=== PATIENT | female | born 1985 | race Caucasian/White ===

== ENCOUNTER 2018-07-17 07:53 | Inpatient (IN) | payer OTHER ==
[2018-07-17 09:25] LABS: ABS Basophils 0.1 10^3/ul (0-0.2); ABS Eosinophils 0.1 10^3/ul (0-0.6); ABS Lymphocytes 1.7 10^3/ul (1.0-4.8); ABS Monocytes 0.6 10^3/ul (0-0.8); ABS Neutrophils 5.5 10^3/ul (1.5-7.7); ABS Nucleated RBC 0 10^3/ul; Eosinophil % 1.8 % (0-6); Hematocrit 37 % (35-47); Hemoglobin 12.5 g/dl (12.0-16.0); Lymphocyte % 20.9 % (25-47); Mean Corpuscular HGB Conc 34 g/dl (31-36); Mean Corpuscular Hemoglobin 30 pg (27-31); Mean Corpuscular Volume 90 fL (80-97); Mean Platelet Volume 8.7 um3 (7.4-10.4); Nucleated Red Blood Cells % 0.1; Platelet Count 307 10^3/ul (150-450); Red Blood Count 4.15 10^6/ul (4.00-5.40); Red Cell Distribution Width 14 % (10.5-15)
[2018-07-17] MEDS ORDERED: Oxytocin in LR* 20 UNITS/1,000 ML BAG IVPB ONE (09:47)
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
[2018-07-17] MEDS ORDERED: Oxytocin in LR* 20 UNITS/1,000 ML BAG IVPB SCH (10:00)
[2018-07-17] MEDS ORDERED: OBEPIDURAL* 250 ML EPIDURAL ONE (14:55)
[2018-07-17] MEDS ORDERED: Sodium Citrate/Citric Acid* 15 ML UDC PO PRN (16:35)
[2018-07-17] MEDS ORDERED: Famotidine TAB* 20 MG PO PRN (16:35)
[2018-07-17] MEDS ORDERED: Phenylephrine IV* 40 MCG/ML 10 ML SYRINGE IV PUSH PRN (16:35)
[2018-07-17] MEDS ORDERED: OBEPIDURAL* 250 ML EPIDURAL SCH (17:00)
[2018-07-17] MEDS ORDERED: ceFOXitin 2 GM IVPREMIX* 2 GM/50 ML BAG ONE (20:31)
[2018-07-17] MEDS ORDERED: Lidocaine 2% EPI 1:200000 MPF*10-20 ML VIAL ONE (20:56)
[2018-07-17] MEDS ORDERED: Chloroprocaine 3%* 20 ML VIAL ONE (20:56)
[2018-07-17] MEDS ORDERED: Famotidine IV* 10 MG/ML 2 ML (20 mg) ONE (21:00)
[2018-07-17] MEDS ORDERED: Ondansetron INJ* 2 MG/ML VIAL ONE (21:00)
[2018-07-17] MEDS ORDERED: fentaNYL* 50 MCG/ML 2 ML VIAL (100 MCG VIAL) IV PRN (21:33)
[2018-07-17] MEDS ORDERED: Naloxone* 0.4 MG/ML 1 ML VIAL IV PRN ×2 (21:33→21:44)
[2018-07-17] MEDS ORDERED: OXYTOCIN* 10 UNITS/ML 1 ML VIAL ONE (21:36)
[2018-07-17] MEDS ORDERED: Morphine PF AMP (0.5MG/ML)* 5 MG/10 ML AMP ONE (21:37)
[2018-07-17] MEDS ORDERED: Ondansetron INJ* 2 MG/ML VIAL IV PRN (21:44)
[2018-07-17] MEDS ORDERED: HYDROcodone/ACETAMIN 5-325 MG* 1 TAB PO PRN (21:44)
[2018-07-17] MEDS ORDERED: DiMENhydriNATE IV* 50 MG/ML VIAL IV PUSH PRN (21:44)
[2018-07-17] MEDS ORDERED: diPHENhydraMINE IV* 50 MG/ML 1 ml VIAL (BENADRYL) IV PRN (21:44)
[2018-07-17] MEDS ORDERED: Ketorolac INJ* 30 MG/ML 1 ML VIAL IV PRN (21:44)
[2018-07-17] MEDS ORDERED: Acetaminophen TAB* 325 MG PO PRN (21:44)
[2018-07-17] MEDS ORDERED: PROCHLORPERAZINE INJ 5 MG/ML 2 ML VIAL IV PRN (21:44)
[2018-07-17] MEDS ORDERED: Nalbuphine* 10 MG/ML 1 ML VIAL IV PRN (21:44)
[2018-07-17] MEDS ORDERED: Scopolamine 1.5 mg* PATCH TRANSDERM PRN (21:44)
[2018-07-17] MEDS ORDERED: Ketorolac INJ* 30 MG/ML 1 ML VIAL ONE (21:59)
[2018-07-17] MEDS ORDERED: Glycerin ADULT SUPP PR PRN (22:10)
[2018-07-17] MEDS ORDERED: Zolpidem TAB* 5 MG PO PRN (22:10)
[2018-07-17] MEDS ORDERED: Dibucaine 1% 28.35 GM TUBE PR PRN (22:10)
[2018-07-17] MEDS ORDERED: Witch Hazel PAD* JAR TOPICAL PRN (22:10)
[2018-07-18] MEDS: HYDROcodone/ACETAMIN 5-325 MG* 1 TAB PO PRN ×2 (06:31→12:05)
[2018-07-18] MEDS: Enoxaparin(*) 60 MG/0.6 ML SYR SUBCUT SCH ×2 (07:08→18:11)
[2018-07-18 07:50] LABS: ABS Basophils 0.1 10^3/ul (0-0.2); ABS Eosinophils 0.1 10^3/ul (0-0.6); ABS Lymphocytes 1.9 10^3/ul (1.0-4.8); ABS Monocytes 0.7 10^3/ul (0-0.8); ABS Neutrophils 9.2 10^3/ul (1.5-7.7); ABS Nucleated RBC 0 10^3/ul; Eosinophil % 0.5 % (0-6); Hematocrit 32 % (35-47); Hemoglobin 10.8 g/dl (12.0-16.0); Lymphocyte % 15.5 % (25-47); Mean Corpuscular HGB Conc 34 g/dl (31-36); Mean Corpuscular Hemoglobin 31 pg (27-31); Mean Corpuscular Volume 89 fL (80-97); Mean Platelet Volume 8.3 um3 (7.4-10.4); Nucleated Red Blood Cells % 0; Platelet Count 267 10^3/ul (150-450); Red Blood Count 3.55 10^6/ul (4.00-5.40); Red Cell Distribution Width 13 % (10.5-15); White Blood Count 11.9 10^3/ul (3.5-10.8)
[2018-07-18] MEDS: Docusate CAP* 100 MG PO SCH ×3 (08:56→20:15)
[2018-07-18] MEDS: Simethicone TAB* 80 MG TAB.CHEW PO SCH ×4 (08:56→20:15)
[2018-07-18] MEDS ORDERED: Ferrous Gluconate TAB* 324 MG TAB PO SCH (09:00)
[2018-07-18] MEDS ORDERED: Acetaminophen TAB* 325 MG PO PRN (13:44)
--- NOTE | 2018-07-18 14:24 | OP ---
DATE OF OPERATION: 07/17/18 - ROOM #105 DATE OF : 87 SURGEON: Raymundo Lucas MD PRODUCT SAFETY OFFICER: Kiesha Cervantse CM ANESTHESIA: Epidural. PRE-OP DIAGNOSES: with a BMI of 53, morbid obesity, gestational hypertension, and hypothyroidism with a category 2 tracing, in labor. The patient desires permanent sterilization. POST-OP DIAGNOSES: with a BMI of 53, morbid obesity, gestational hypertension, and hypothyroidism with a category 2 tracing, in labor. OPERATIVE PROCEDURE: Primary low-transverse section and bilateral fimbriectomy. ESTIMATED BLOOD LOSS: 600 cc. URINE OUTPUT: Clear. IV FLUIDS: She received 1800 cc of IV crystalloid fluid. FINDINGS: Delivery of a viable male infant with body cord x2 with Apgars of 9 and 9, weighing 7 pounds and 2 ounces. The placenta was grossly intact with 3- vessel cord noted. The uterus, adnexa, bowel, and bladder were within normal limits. SPECIMEN SENT TO PATHOLOGY: Cord blood and bilateral tubal fimbria. DESCRIPTION OF PROCEDURE: The patient was taken to the operating room where she was identified. She was placed on operating table, where an epidural anesthetic was obtained without difficulty. She was then placed in the supine position with a leftward tilt, prepped and draped in normal sterile fashion. A Pfannenstiel skin incision was made with a knife and carried through to the underlying layer of fascia. The fascia was then nicked in the midline and extended laterally with curved Ramos scissors. The fascia was then grasped superiorly and inferiorly with Kelvin clamps and dissected off sharply from the rectus muscle. The rectus muscles were in the midline bluntly. The peritoneum was identified, grasped with pickups, and entered sharply with Metzenbaum scissors, and extended superiorly and inferiorly, bluntly. At this point, I proceeded to introduce a retractor into the patient's abdomen. A bladder flap was created. the bladder flap, a bladder blade was then introduced. A low transverse incision was made with a knife and extended laterally with bandage scissors. The infant's head was then grasped and delivered atraumatically. The rest of the infant's body was then delivered. The cord was clamped and cut and the infant was handed off to awaiting jewel hole cornerer. Cord bloods were obtained. The placenta was removed manually. The uterus was then cleaned with moist laparotomy sponges. All the sponges were removed from the patient's abdomen. The uterus was left in situ and the uterine incision was closed with 0 Polysorb suture in a running locked fashion with a second imbricating layer of 0 Polysorb suture with good hemostasis noted. At this point, the retractor was removed from the patient's abdomen. The uterus was then exteriorized. A bilateral fimbriectomy was performed in the usual fashion as a means of tubal sterilization. The uterus was then returned to the patient's abdomen. The gutters were then cleared of clot and debris usually moist laparotomy sponges. The peritoneum was then closed using 3 -0 Polysorb suture in a running fashion. The fascia was closed using 0 Polysorb suture in a running fashion. Mini's fascia was closed using 3-0 Polysorb suture with interrupted stitches and the skin was closed with a 4-0 Monocryl and a subcuticular stitch. The patient tolerated the procedure well. Sponge, lap, and needle counts were correct x2. She was then transferred to the recovery room area in stable condition. [id number]/[facility] #: [id number] C[facility]-POTSDAM HOSPITALBrandi
[2018-07-18] MEDS: oxyCODONE/Acetamin 5/325 MG* TAB PO PRN ×2 (16:09→20:15)
[2018-07-18] MEDS: Ibuprofen TAB* 600 MG PO PRN ×2 (16:09→22:01)
[2018-07-19] MEDS: oxyCODONE/Acetamin 5/325 MG* TAB PO PRN ×7 (00:19→22:42)
[2018-07-19] MEDS: Ibuprofen TAB* 600 MG PO PRN ×4 (04:15→22:41)
[2018-07-19] MEDS: Levothyroxine TAB* 75 MCG TAB PO SCH (06:03)
[2018-07-19] MEDS: Enoxaparin(*) 60 MG/0.6 ML SYR SUBCUT SCH ×2 (06:03→18:03)
[2018-07-19] MEDS: Simethicone TAB* 80 MG TAB.CHEW PO SCH ×4 (08:14→20:42)
[2018-07-19] MEDS: Docusate CAP* 100 MG PO SCH ×3 (08:14→20:42)
[2018-07-20] MEDS: oxyCODONE/Acetamin 5/325 MG* TAB PO PRN ×2 (02:47→08:42)
[2018-07-20 07:59] VITALS: BP 136/87
[2018-07-20] MEDS: Docusate CAP* 100 MG PO SCH (08:42)
[2018-07-20] MEDS: Levothyroxine TAB* 75 MCG TAB PO SCH (08:42)
[2018-07-20] MEDS: Simethicone TAB* 80 MG TAB.CHEW PO SCH (08:42)
[2018-07-20] MEDS ORDERED: Scopolamine PATCH Remove* 1 NOTE MISC PATCH OFF ONE (21:48)
== END 2018-07-20 11:50 | disposition home or self-care (01) | DRG 784 ==
LOC: MCHOBOUT 07:53 → MCHOB 09:29
PROVIDERS: ADMIT Obstetrics & Gynecology; ATTEND Obstetrics & Gynecology
PROC: 10D00Z1 Extraction of Products of Conception, Low, Open Approach (ICD-10-PCS; 2018-07-17)
PROC: 0UB70ZZ Excision of Bilateral Fallopian Tubes, Open Approach (ICD-10-PCS; 2018-07-17)
PROC: 4A1HXCZ Monitoring of Products of Conception, Cardiac Rate, External Approach (ICD-10-PCS; 2018-07-17)
PROC: 10H07YZ Insertion of Other Device into Products of Conception, Via Natural or Artificial Opening (ICD-10-PCS; 2018-07-17)
PROC: 10H073Z Insertion of Monitoring Electrode into Products of Conception, Via Natural or Artificial Opening (ICD-10-PCS; 2018-07-17)
PROC: 10907ZC Drainage of Amniotic Fluid, Therapeutic from Products of Conception, Via Natural or Artificial Opening (ICD-10-PCS; principal; 2018-07-17 20:45)
DX: O99.284 Endocrine, nutritional and metabolic diseases complicating childbirth (principal); Z68.43 Body mass index [BMI] 50.0-59.9, adult; E03.9 Hypothyroidism, unspecified; O99.214 Obesity complicating childbirth; E66.01 Morbid (severe) obesity due to excess calories; O13.4 Gestational [pregnancy-induced] hypertension without significant proteinuria, complicating childbirth; Z82.49 Family history of ischemic heart disease and other diseases of the circulatory system; Z83.3 Family history of diabetes mellitus; Z82.5 Family history of asthma and other chronic lower respiratory diseases; Z82.3 Family history of stroke; Z3A.38 38 weeks gestation of pregnancy; Z37.0 Single live birth; O69.82X0 Labor and delivery complicated by other cord entanglement, without compression, not applicable or unspecified; Z30.2 Encounter for sterilization
CPT/HCPCS: 36415; 85025; 86850; 86900; 86901; 88302; A9270-GY; J0694; J1650; J1885; J2400; J2405; J2590

== ENCOUNTER 2019-12-23 13:31 | Emergency (ER) | payer OTHER ==
--- OUTSIDE RECORDS SUMMARY | 2019-12-23 14:00 | XMS REPORT | Continuity of Care Document ---
:1985 External Reference #:[id number] Author Name Lars Pathak MD Address [address] [place] [address] Problems Description No Information Available Social History Type Date Description Comments Sex Unknown Tobacco Use Start: Unknown End: Former Cigarette Smoker Unknown Smoking Status Reviewed: 10/16/08 Former Cigarette Smoker ETOH Use Currently consumes 1 glass daily or less alcohol Enjoy Exercising Enjoys exercising Allergies, Adverse Reactions, Alerts Description No Known Drug Allergies Medications Active Medications SIG Qnty Indications Ordering Date Provider Lansoprazole 1 tab by mouth 30caps K25.9 Lars 11/26/2019 30mg twice a day MD Zo Capsules DR Fluoxetine HCL (PMDD) 1 by mouth daily 90caps F32.89 Renetta R. 03/07/2019 for anxiety and Storm, DATA VISUALIZATION DEVELOPER-C 20mg Capsules depression Date Night 2 date nights F32.89 Renetta R. 03/07/2019 every month Storm, DATA VISUALIZATION DEVELOPER-C without children Levothyroxine Sodium take one tablet by 90tabs Renetta R. mouth every day Storm, DATA VISUALIZATION DEVELOPER-C 75mcg Tablets Immunizations CPT Code Status Date Vaccine Lot # [id number] Given 07/16/2019 Influenza Virus Vaccine, Quadrivalent, 3 Yr > Quad, Preserv Free [id number] Given 10/13/2014 Flumist, Influenza Vaccine Quadrivalent, Live For [id number] Intranasal Use 45094 Given 04/30/2012 Tdap (Adacel) [id number] Vital Signs Date Vital Result Comment 11/26/2019 10:52am Weight 281.00 lb Weight 127.462 kg BP Systolic 124 mmHg BP Diastolic 74 mmHg Heart Rate 84 /min Body Temperature 97.6 F Respiratory Rate 16 /min O2 % BldC Oximetry 99 % 05/17/2019 2:14pm Weight 291.00 lb Weight 131.998 kg BP Systolic 120 mmHg BP Diastolic 80 mmHg Heart Rate 102 /min Body Temperature 98.3 F Respiratory Rate 16 /min O2 % BldC Oximetry 97 % Results Test Acquired Date Facility Test Result H/L Range Note Laboratory test 11/26/2019 [facility] Laboratory C Reactive < pending> finding [phone] Protein Procedures Description No Information Available Medical Devices Description No Information Available Encounters Description No Information Available Assessments Date Code Description Provider 11/26/2019 K25.9 Gastric ulcer, unspecified as acute or Lars Pathak MD chronic, without hemorrhage or perforation 11/26/2019 I83.91 Asymptomatic varicose veins of right lower Lars Pathak MD extremity Plan of Treatment 11/26/2019 - Lars Pathak MDK25.9 Gastric ulcer, unspecified as acute or chronic, without hemorrhage or perforationNew Medication:Lansoprazole 30 mg - 1 tab by mouth twice a dayComments:She affects a lack of concern about the symptoms, however they do seem fairly concerning to me.I think it possible she is dealing with a stomach ulcer. We will start her on high-dose PPIs and get her in with GI for assessment.She also reports that she has been having some fevers throughout this process, which is even more concerning. As a result I added some basic blood work to the workup for today.Follow up:Refer to GI for chronic vomiting dyucnwcfM81.91 Asymptomatic varicose veins of right lower extremityComments:As an aside she brings up some "bumps" on her right knee that have cropped up. They appear to be noninflamed ordinary varicose veins and I informed her of this. Functional Status Description No Information Available Mental Status Description No Information Available Referrals Description No Information Available
--- OUTSIDE RECORDS SUMMARY | 2019-12-23 14:00 | XMS REPORT | Continuity of Care Document ---
:1985 External Reference #:[id number] Author Name Jennifer Hinton NP (transmitted by agent of provider Melinda Green ) Address [address] [place] [address] Care Team Providers Name Role Phone Renetta Linton NP - Family Care Team Information Data Collection Specialist [phone] Problems Description No Information Available Social History Type Date Description Comments Sex Unknown Tobacco Use Start: Unknown cigars 1 or 2 daily Smoking Status Reviewed: 12/10/19 cigars 1 or 2 daily ETOH Use Rarely consumes alcohol Recreational Drug Use Sporadically uses Marijuana Exercise Type/Frequency Exercises sporadically Allergies, Adverse Reactions, Alerts Active Allergies Reaction Severity Comments Date Grass 12/10/2019 Pollen 12/10/2019 Medications Active Medications SIG Qnty Indications Ordering Provider Date Levothyroxine Sodium 1 by mouth Unknown 75mcg every day Tablets Fluoxetine HCL 1 by mouth Unknown 20mg Capsules every day Lansoprazole 1 by mouth Unknown 30mg Capsules DR twice daily Immunizations Description No Information Available Vital Signs Date Vital Result Comment 12/10/2019 3:33pm Height 63 inches 5'3" Weight 279.50 lb Heart Rate 74 /min BP Systolic 136 mmHg BP Diastolic 85 mmHg Respiratory Rate 16 /min O2 % BldC Oximetry 99 % BMI (Body Mass Index) 49.5 kg/m2 Results Description No Information Available Procedures Description No Information Available Medical Devices Description No Information Available Encounters Description No Information Available Assessments Date Code Description Provider 12/10/2019 K21.9 Gastro-esophageal reflux disease without Jennifer Hinton NP esophagitis 12/10/2019 R11.11 Vomiting without nausea Jennifer Hinton NP Plan of Treatment No Information Available Functional Status Description No Information Available Mental Status Description No Information Available Referrals Description No Information Available
--- NOTE | 2019-12-23 14:21 | ED ---
Abdominal Pain/Female - HPI Summary HPI Summary: Patient is a 34 y/o F presenting to the ED for a chief complaint of intermittent abdominal pain near the umbilical region and epigastrium that radiates to the chest and back that worsened at 07:30 on 12/23/19. Patient is present with her sister. She also reports nausea, vomiting, and a weight loss of 30-40 pounds since the abdominal pain began 4 months ago. The current abdominal pain is rated as a 6/10 in severity and described as constant. No aggravating or alleviating factors are reported. Patient notes reducing fatty foods from her diet without relief of the abdominal pain. Previously, she saw a fourdrinier machine tender and has a scope scheduled for 01/21/20. PSHx is significant for tonsillectomy and . Allergies to any medications are denied. - History of Current Complaint Chief Complaint: EDAbdPain Stated Complaint: ABD/BACK PAIN PER PT Time Seen by Provider: 12/23/19 14:11 Hx Obtained From: Patient Onset/Duration: Sudden Onset, Lasting Weeks, Still Present Timing: Intermittent Episode Lasting Severity Initially: Moderate Severity Currently: Moderate Pain Intensity: 6 Pain Scale Used: 0-10 Numeric Location: Epigastric, Umbilical Radiates: Yes Radiates to: Back, Chest Aggravating Factor(s): Nothing Alleviating Factor(s): Nothing Associated Signs and Symptoms: Positive: Back Pain, Nausea, Vomiting, Other: - Positive weight loss Allergies/Adverse Reactions: Allergies Allergy/AdvReac Type Severity Reaction Status Date / Time No Known Allergies Allergy Verified 12/23/19 13:33 Home Medications: Home Medications Levothyroxine TAB* [Synthroid 75 MCG TAB*] 75 mcg PO DAILY 05/28/18 [History Confirmed 12/23/19] Acetaminophen TAB* [Tylenol TAB*] 325 mg PO Q6H PRN 12/23/19 [History Confirmed 12/23/19] FLUoxetine CAP* [PROzac CAP*] 20 mg PO DAILY 12/23/19 [History Confirmed ] traMADol TAB* [Ultram*] 50 mg PO Q6HR PRN #20 tab MDD 4 12/23/19 [Rx] PMH/Surg Hx/FS Hx/Imm Hx Previously Healthy: Yes Endocrine/Hematology History: Reports: Hx Thyroid Disease Respiratory History: Reports: Hx Asthma Sensory History: Denies: Hx Legally Blind, Hx Deafness Opthamlomology History: Denies: Hx Legally Blind EENT History: Denies: Hx Deafness - Surgical History Surgical History: Yes Surgery Procedure, Year, and Place: , tonsillectomy Infectious Disease History: No Infectious Disease History: Denies: Traveled Outside the [place] in Last 30 Days - Family History Known Family History: Negative: Cardiac Disease, Hypertension, Diabetes - Social History Occupation: Employed Full-time Lives: With Family Alcohol Use: None Hx Substance Use: No Substance Use Type: Reports: None Hx Tobacco Use: No Smoking Status (MU): Never Smoked Tobacco Have You Smoked in the Last Year: No Review of Systems Positive: Other - Positive weight loss Positive: Abdominal Pain - Near the umbilical region that radiates to the back and chest, Vomiting, Nausea Positive: Myalgia - Back that radiates from the abdomen All Other Systems Reviewed And Are Negative: Yes Physical Exam - Summary Physical Exam Summary: Appearance: The patient is morbidly obese, in no acute distress, and in no acute pain. Skin: The skin is warm and dry, and skin color reflects adequate perfusion. HEENT: The head is normocephalic and atraumatic. The pupils are equal and reactive. The conjunctivae are clear and without drainage. Nares are patent and without drainage. Mouth reveals moist mucous membranes, and the throat is without erythema and exudate. The external ears are intact. The ear canals are patent and without drainage. The tympanic membranes are intact. Neck: The neck is supple with full range of motion and non-tender. There are no carotid bruits. There is no neck vein distension. Respiratory: Chest is non-tender. Lungs are clear to auscultation and breath sounds are symmetrical and equal. Cardiovascular: Heart is regular rate and rhythm. There is no murmur or rub auscultated. There is no peripheral edema and pulses are symmetrical and equal. Abdomen: The abdomen is soft. There are normal bowel sounds heard in all four quadrants and there is no organomegaly palpated. Tenderness in the epigastrium and RUQ. Musculoskeletal: There is no back tenderness noted. Extremities are non-tender with full range of motion. There is good capillary refill. There is no peripheral edema or calf tenderness elicited. Neurological: Patient is alert and oriented to person, place and time. The patient has symmetrical motor strength in all four extremities. Cranial nerves are grossly intact. Deep tendon reflexes are symmetrical and equal in all four extremities. Psychiatric: The patient has an appropriate affect and does not exhibit any anxiety or depression. Triage Information Reviewed: Yes Vital Signs On Initial Exam: Initial Vitals Temp Pulse Resp BP Pulse Ox 98.5 F 76 18 164/96 100 12/23/19 13:33 12/23/19 13:33 12/23/19 13:33 12/23/19 13:33 12/23/19 13:33 Vital Signs Reviewed: Yes Procedures - Sedation Patient Received Moderate/Deep Sedation with Procedure: No Diagnostics - Vital Signs Vital Signs Temp Pulse Resp BP Pulse Ox 12/23/19 13:33 98.5 F 76 18 164/96 100 - Laboratory Result Diagrams: 12/23/19 14:36 12/23/19 14:36 Lab Statement: Any lab studies that have been ordered have been reviewed, and results considered in the medical decision making process. - CT Abdomen/Pelvis CT CT Interpretation Completed By: Radiologist Summary of CT Findings: Abdomen/Pelvis CT IMPRESSION: 1. Mild gallbladder wall thickening versus artifact from under distension. No calcified gallstones or significant pericholecystic stranding. Right upper quadrant ultrasound may be helpful to further assess. 2. Mural prominence in the transverse colon, likely artifact from underdistention. Mild colitis less likely. 3. Diverticulosis coli. Reviewed by Dr. López. - Ultrasound Gallbladder US Ultrasound Interpretation Completed By: Radiologist Summary of Ultrasound Findings: Gallbladder US IMPRESSION: CHOLELITHIASIS WITH POSITIVE SONOGRAPHIC PEREZ SIGN. THE SONOGRAPHIC FEATURES ARE INDETERMINATE, BUT SUSPICIOUS, FOR ACUTE CHOLECYSTITIS. Reviewed by Dr. López. Abdominal Pain Fem Course/Dx - Course Course Of Treatment: Her ultrasound was equivocal for possible cholecystitis so I contacted Dr. Eduardo. He came to the department and evaluated her and requests a CT scan. CT scan was unremarkable and he felt that she could be discharged for follow-up. She is going to see the fourdrinier machine tender soon and will call the office tomorrow to attempt to move her appointment up which currently is on January 20. - Diagnoses Provider Diagnoses: Epigastric abdominal pain - Provider Notifications Discussed Care Of Patient With: Wagner Eduardo - At 16:05, Dr. Wagner Eduardo will see the patient in the ED. At 16:46, Dr. Wagner Eduardo assessed the patient and recommends an abdomen/pelvis CT with contrast. Time Discussed With Above Provider: 16:05 Instructed by Provider To: MD Will See In ED Discharge ED - Sign-Out/Discharge Documenting (check all that apply): Patient Departure - Discharge - Discharge Plan Condition: Stable Disposition: HOME Prescriptions: traMADol TAB* [Ultram*] 50 mg PO Q6HR PRN #20 tab MDD 4 PRN Reason: Pain Patient Education Materials: Epigastric Pain (ED) Referrals: Renetta Linton, INFORMATICS PHARMACIST [Primary Care Provider] - Additional Instructions: RETURN TO THE EMERGENCY DEPARTMENT FOR CHANGING OR WORSENING SYMPTOMS. Follow up with your primary care physician in 2-3 days. - Billing Disposition and Condition Condition: STABLE Disposition: Home - Attestation Statements Document Initiated by Christine: Yes Documenting Scribe: Robyn Morales Provider For Whom Christine is Documenting (Include Credential): Leo López MD Scribe Attestation: Robyn Martinez scribed for Leo López MD on 12/23/19 at 2124. Scribe Documentation Reviewed: Yes Provider Attestation: The documentation as recorded by the Robyn mchugh accurately reflects the service I personally performed and the decisions made by , Leo López MD Status of Scribe Document: Viewed
[2019-12-23] MEDS ORDERED: HYDROmorphone INJ1* 1 MG/ML SYRINGE IV SLOW PU ONE ×2 (14:29→19:25)
[2019-12-23] MEDS ORDERED: Ondansetron INJ* 2 MG/ML VIAL IV ONE (14:29)
[2019-12-23] MEDS ORDERED: NS 0.9% 1000 ML** 1,000 ML IV ONE (14:29)
[2019-12-23 14:53] LABS: ABS Basophils 0.1 10^3/ul (0-0.2); ABS Eosinophils 0.2 10^3/ul (0-0.6); ABS Lymphocytes 2.3 10^3/ul (1.0-4.8); ABS Monocytes 0.6 10^3/ul (0-0.8); ABS Neutrophils 4.3 10^3/ul (1.5-7.7); Eosinophil % 2.5 %; Hematocrit 41 % (35-47); Hemoglobin 13.4 g/dL (12.0-16.0); Lymphocyte % 30.3 %; Mean Corpuscular HGB Conc 33 g/dL (31-36); Mean Corpuscular Hemoglobin 28 pg (27-31); Mean Corpuscular Volume 84 fL (80-97); Mean Platelet Volume 8.6 fL (7.4-10.4); Nucleated Red Blood Cells % 0.1; Platelet Count 374 10^3/uL (150-450); Red Blood Count 4.82 10^6 /uL (3.70-4.87); Red Cell Distribution Width 15 % (10-15); White Blood Count 7.5 10^3/uL (3.5-10.8)
[2019-12-23 15:16] LABS: ALT 14 U/L (7-52); AST 15 U/L (13-39); Albumin 3.8 g/dL (3.2-5.2); Albumin/Globulin Ratio 1.2 (1-3); Alkaline Phosphatase 73 U/L (34-104); Anion Gap 5 mmol/L (2-11); Blood Urea Nitrogen 9 mg/dL (6-24); C Reactive Protein 11.03 mg/L (<8.01); CO2 Carbon Dioxide 25 mmol/L (22-32); Calcium 8.7 mg/dL (8.6-10.3); Chloride 105 mmol/L (101-111); EGFR African American 87.3 (>60); EGFR Non-African American 72.1 (>60); Globulin 3.3 g/dL (2-4); Glucose 92 mg/dL (70-100); Sodium 135 mmol/L (135-145); Total Protein 7.1 g/dL (6.4-8.9)
[2019-12-23 15:18] LABS: HCG Pregnancy < 0.60 mIU/mL
[2019-12-23 15:43] LABS: Urine Appearance Clear; Urine Bilirubin Negative (Negative); Urine Blood Negative (Negative); Urine Color Yellow; Urine Glucose Negative (Negative); Urine Ketones Negative (Negative); Urine Nitrite Negative (Negative); Urine Protein Negative (Negative); Urine Specific Gravity 1.017 (1.010-1.030); Urine Urobilinogen Negative (Negative)
[2019-12-23] MEDS ORDERED: Iohexol 300* (CONTRAST) 10 ML SDV IV ONE (17:09)
--- NOTE | 2019-12-23 18:49 | CONS ---
CC: [facility]; Dr. Pathak, [facility]; Dr. Vimal Baltazar * CONSULTATION REPORT: DATE OF CONSULT: 12/23/19 - EMERGENCY DEPT LOCATION: Emergency room. REFERRING PROVIDER: Dr. Leo López from the emergency room. REASON FOR CONSULT: Epigastric pain with nausea and vomiting. HISTORY OF PRESENT ILLNESS: Ms. Jane Serna is a 34-year-old woman who is morbidly obese, who presented in the emergency room today with epigastric abdominal discomfort. Her history starts approximately 3 to 4 months ago when she developed fairly regular bouts of nausea with vomiting sometimes 4 to 5 times a week with an associated 30-pound weight loss. She had some reflux-type symptoms, but did not try [id number] antacids. She noted no jaundice and did not have truly right upper quadrant abdominal pain , but did have some pain in the mid back at times. She has had no change in her bowel habits other than describing loose multiple bowel movements, but not diarrhea. She had no fevers, lower abdominal discomfort, flank pain, shakes, or chills. She saw Dr. Pathak in mid November and laboratory workup was unremarkable, although she had an elevated CRP. She was started on proton pump inhibitor. She was referred to Dr. Vimal Baltazar from Gastroenterology. She was seen in Dr. Baltazar's office and scheduled for an upper endoscopy with anesthesia, which will be done in early January. Today, she states that she was having her usual symptoms, but Monday things seemed to worsen and she presented to the emergency room this afternoon. While in the emergency room, she was noted to be afebrile with no tachycardia and stable vital signs. Her laboratory workup included a normal white blood cell count. Liver transaminases, electrolytes, and alkaline phosphatase were all normal. She had an elevated C-reactive protein of 11, which is down from 15 several weeks ago. Her hCG and lipase were negative. She underwent an ultrasound of her gallbladder. This was a difficult study due to her morbid obesity with a BMI of 48; however, I reviewed this with Dr. Cramer. There was concern for a 3 cm stone up in the cap of the gallbladder. This was difficult to determine. It did appear to be particularly shadowing, but there was no wall thickening, pericholecystic fluid, or ductal dilation. Surgical consultation was obtained. PAST MEDICAL HISTORY: 1. Morbid obesity. 2. Vitamin D deficiency. 3. Polycystic ovary syndrome. 4. Hypothyroidism. 5. Migraines. 6. Depression. PAST SURGICAL HISTORY: 1. section with tubal ligation. 2. Tonsillectomy. MEDICATIONS: Include: 1. Levothyroxine. 2. Fluoxetine. 3. Lansoprazole. ALLERGIES: Environmental allergies. She has no known drug allergies. FAMILY HISTORY: Father has diabetes type 2, with thyroid disease. Mother has asthma. There is no malignancy. SOCIAL HISTORY: She smokes cigars. She is and has 2 children. She rarely consumes alcohol. She exercises sporadically. REVIEW OF SYSTEMS: Cardiovascular: She denies chest pain or shortness of breath. Pulmonary: No wheezing or hemoptysis. GI: As per above. She has had no bleeding in her vomitus. There has been no melena or bright red blood per rectum. : No urgency or hematuria. Neuro: She has a history of migraine headaches, but no recent change in symptoms. Psych: She reports anxiety and depression. PHYSICAL EXAM: She is afebrile, pulse 80, blood pressure 121/75. In general, she is an obese female, appears to be in no apparent distress. She is awake, alert, and conversive. She appears to have normal judgment and insight, and she is alert and oriented x3. Lungs were clear to auscultation with normal respiratory effort. Heart was regular rate and rhythm without murmurs, rubs, or gallops. Her abdomen is soft, nondistended. She had some hyperactive bowel sounds throughout. There is no high-pitch or tinkling. There are no prior surgical incisions. I appreciate no umbilical or abdominal wall hernias. She has some tenderness in the epigastrium on deeper palpation with some guarding, but no rebound or peritoneal irritation. I appreciate no right upper quadrant abdominal discomfort, organomegaly, or mass. Extremities show no cyanosis or edema. IMPRESSION AND PLAN: Epigastric discomfort associated with nausea and vomiting that has been going on for 4 to 5 months with significant weight loss. She has seen Gastroenterology with Dr. Baltazar and is scheduled for an upper endoscopy in early January. Diagnosis given at that time was gastroesophageal reflux disease with some cyclic vomiting syndrome. She has an ultrasound, which is a poor study and difficult to read and there was concern for possible gallstone up in the cap opposite the infundibulum of the gallbladder, but there were no other signs of acute calculous cholecystitis. Her laboratory workup is all unremarkable. At this point, it is difficult for me to say that this is acute cholecystitis or even gallbladder/gallstone related. Gallbladder disease is not typical with a weight loss and profuse vomiting that she has been having. Dr. Baltazar has scheduled her for an upper endoscopy. At this point, I would recommend proceeding with a CAT scan of the abdomen and pelvis due to the severity of her symptoms and the duration to rule out any other pathology as well as possibly identifying a gallstone in the gallbladder. At this point, I will not schedule or recommend cholecystectomy until the study is done and if she is still having discomfort and need to be admitted, we would defer to hospitalist admission with surgical and GI consultation. We will await the CAT scan. I discussed all of the above with the patient as well as Dr. Leo López in the emergency room. [id number]/[facility] #: [id number] ANDRE
[2019-12-23 19:41] VITALS: BP 139/92
== END 2019-12-23 19:39 | disposition home or self-care (01) ==
LOC: ED 13:31
DX: R10.13 Epigastric pain (principal); R10.33 Periumbilical pain; M54.6 Pain in thoracic spine; R11.2 Nausea with vomiting, unspecified; R63.4 Abnormal weight loss; Z68.42 Body mass index [BMI] 45.0-49.9, adult; K80.20 Calculus of gallbladder without cholecystitis without obstruction; K57.30 Diverticulosis of large intestine without perforation or abscess without bleeding; E03.9 Hypothyroidism, unspecified; F32.9 Major depressive disorder, single episode, unspecified; Z79.899 Other long term (current) drug therapy
CPT/HCPCS: 36415; 74177; 76705; 80053; 81003; 83605; 83690; 84702; 85025; 86140; 96361; 96374; 96375; 96376; 99283; J1170; J2405; Q9967

== ENCOUNTER 2019-12-30 06:16 | Day surgery (SDC) | payer OTHER ==
[~2019-12-30 06:16] MED LIST: Buffered Lidocaine 1% SYRIN* 1 ML/SYRINGE INTRADERM ONE; Dexamethasone IV* 4 MG/ML 1 ML (4 MG) IV SLOW PU ONE; Famotidine IV* 10 MG/ML 2 ML (20 mg) IV ONE; Lactated Ringers 1000 ML Bag* 1,000 ML IV SCH
[2019-12-30] MEDS ORDERED: ceFAZolin 1 GM ADVAN(*) 1 GM ADDV.VIAL IVPB ONE (07:14)
[2019-12-30] MEDS ORDERED: Dexamethasone IV* 4 MG/ML 1 ML (4 MG) ONE (07:14)
[2019-12-30] MEDS ORDERED: ceFAZolin 2 GM PREMIX in ORs 2 GM/50 ML BAG ONE (07:14)
[2019-12-30] MEDS ORDERED: Famotidine IV* 10 MG/ML 2 ML (20 mg) ONE (07:15)
[2019-12-30] MEDS ORDERED: Midazolam* 1 MG/ML 5 ML VIAL (5 MG) ONE (08:47)
[2019-12-30] MEDS ORDERED: fentaNYL* 50 MCG/ML 2 ML VIAL (100 MCG VIAL) ONE ×2 (08:47→10:26)
[2019-12-30] MEDS ORDERED: Rocuronium* 10 MG/ML VIAL ONE (09:09)
[2019-12-30] MEDS ORDERED: Lidocaine 2% PF * 5 ML VIAL ONE (09:09)
[2019-12-30] MEDS ORDERED: Propofol* 10 MG/ML 20 ML BTL ONE ×2 (09:09→09:28)
[2019-12-30] MEDS ORDERED: Bupivacaine 0.25% SDV* 30 ML ONE (09:27)
[2019-12-30] MEDS ORDERED: Bupivacaine 0.5%* 50 ML MDV VIAL ONE (09:27)
[2019-12-30] MEDS ORDERED: Levalbuterol HFA INHALER* 1 PUFF MDI ONE (09:43)
[2019-12-30] MEDS ORDERED: KETAMINE HCL* 50 MG/ML 10 ML VIAL ONE (09:52)
[2019-12-30] MEDS ORDERED: Ondansetron INJ* 2 MG/ML VIAL ONE (10:49)
[2019-12-30] MEDS ORDERED: Sugammadex * 500 MG/5 ML VIAL IV PUSH ONE (10:58)
--- NOTE | 2019-12-30 11:24 | BRIEFOPN ---
Brief Operative/Procedure Note - Operation Details Pre-Op Diagnosis: Cholelithiasis Post-Op Diagnosis: Cholelithiasis Procedures: Laparoscopic cholecystectomy Surgeon(s)/Proceduralists: Dr. Eduardo. Assist: SIMI Ponce Anesthesia: GETA Estimated Blood Loss: <20cc Findings: As above Specimen(s)/Culture(s) Description: Gallbladder Complications: None
[2019-12-30 12:26] VITALS: BP 167/98
--- NOTE | 2019-12-31 00:57 | OP ---
DATE OF OPERATION: 12/30/19 - [facility] DATE OF : 87 SURGEON: Wagner Eduardo MD DYE COLORIST DYER: SIMI Ellis ANESTHESIA: General IV fluid 1 L crystalloid. PRE-OP DIAGNOSES: Cholelithiasis and right upper quadrant abdominal pain and nausea. POST-OP DIAGNOSES: Cholelithiasis and right upper quadrant abdominal pain and nausea. OPERATIVE PROCEDURE: Laparoscopic cholecystectomy. SPECIMENS: Gallbladder with contained gallstones. WOUND CLASSIFICATION: II. COMPLICATIONS: None. DRAINS: None. FINDINGS: The patient had a 1.5 cm gallstones without evidence of acute or calculus cholecystitis. DESCRIPTION OF PROCEDURE: Written informed consent was obtained, the abdomen was marked with indelible ink and preoperative antibiotics were administered. The patient was taken to the operating room, placed in the supine position. Sequential compression devices and warming blanket were applied. Timeout verification was completed after prepping the abdomen in the usual sterile fashion. Initially, a small valentina in the skin was made in the left upper quadrant at Terry's point and I passed a Veress needle to initially insufflate the abdomen , however, I had trouble accessing the abdomen due to the higher pressures on the insufflator and I then used a 5 mm Optiview to enter the abdomen without difficulty and insufflated the abdomen to 15 mmHg under direct vision. A 5 mm port was placed above the umbilicus and two 5 mm ports were placed in the right side of the abdominal wall in the upper abdomen in the usual location under direct vision and an 11 mm epigastric port was placed. Liver was identified, it was unremarkable. We also evaluated the area where the Visiport had been placed along with the Veress needle and it appeared to be no obvious injury, although there was some hemorrhage in the significantly fatty omentum, but the stomach and transverse colon as well as small bowel in the area showed no evidence of injury, nor was there evidence of bleeding. Gallbladder was identified. It was bluish greenish in color with some slightly thickened wall, but no evidence of acute or chronic inflammation. It was not particularly distended. It was grasped and elevated up over the liver bed The peritoneum along the medial and lateral aspects of the infundibulum were then taken down sharply and also with use of cautery and the cystic duct and artery were identified as they entered the gallbladder. I took a considerable portion of the inferior part of the gallbladder using the critical view technique to assure myself of these 2 structures. The cystic duct did not appear to be dilated and this was clipped with a 10 mm clip hat and cap opener. The cystic artery was likewise clipped as well. The gallbladder was then removed from the liver bed using cautery. It was placed in an Endo Catch bag and brought out through the epigastric incision. There was a palpable larger marble sized stone within the lumen. The liver bed was irrigated and hemostasis was assured. All ports removed under direct vision of the camera. There was no abdominal wall bleeding. I did not close any of the fascial openings. The skin incisions were approximated with subcuticular 4-0 Vicryl suture and Steri- Strips were applied. The patient tolerated procedure well was taken to recovery in stable condition. [id number]/[facility] #: [id number] ANDRE
== END 2019-12-30 12:54 | disposition home or self-care (01) ==
LOC: OR 06:16
PROVIDERS: ATTEND Surgery
DX: K80.10 Calculus of gallbladder with chronic cholecystitis without obstruction (principal); E03.9 Hypothyroidism, unspecified; K21.9 Gastro-esophageal reflux disease without esophagitis; E28.2 Polycystic ovarian syndrome; F17.210 Nicotine dependence, cigarettes, uncomplicated
CPT/HCPCS: 81025; 88304; A9270-GY; J0690; J1100; J2250; J2405; J2704; J3010; J3490